=== PATIENT | male | born 1995 | race Caucasian/White ===

== ENCOUNTER 2017-04-11 14:35 | Emergency (ER) | payer OTHER | END 2017-04-11 15:25 | disposition home or self-care (01) | LOC: FTE 14:35 | DX: H00.015 Hordeolum externum left lower eyelid (principal); S83.91XA Sprain of unspecified site of right knee, initial encounter; X58.XXXA Exposure to other specified factors, initial encounter; Y92.89 Other specified places as the place of occurrence of the external cause | CPT/HCPCS: 99283; Z7502 ==

== ENCOUNTER 2017-05-08 10:51 | Emergency (ER) | payer OTHER | END 2017-05-08 11:10 | disposition home or self-care (01) | LOC: FTE 10:51 → E/R 11:10 | DX: T23.121A Burn of first degree of single right finger (nail) except thumb, initial encounter (principal); X10.1XXA Contact with hot food, initial encounter; Y92.9 Unspecified place or not applicable | CPT/HCPCS: 99283; Z7502 ==

== ENCOUNTER 2017-08-08 07:29 | Emergency (ER) | payer SELFPAY, OTHER | END 2017-08-08 08:01 | disposition home or self-care (01) | LOC: FTE 07:29 | DX: J02.9 Acute pharyngitis, unspecified (principal) | CPT/HCPCS: 99283 ==